=== PATIENT | female | born 1965 | race Caucasian/White ===

== ENCOUNTER 2019-12-29 18:53 | Inpatient (IN) | payer OTHER, SELFPAY ==
[2019-12-29 18:54] VITALS: PULSE 80; RESP 17; TEMP 36.3; O2SAT 100; BMI 33.9
--- NOTE | 2019-12-29 19:14 | EKG12_ITS ---
Test Reason : CHEST PAIN Blood Pressure : / mmHG Vent. Rate : 079 BPM Atrial Rate : 079 BPM P-R Int : 170 ms QRS Dur : 100 ms QT Int : 396 ms P-R-T Axes : 050 009 014 degrees QTc Int : 454 ms Normal sinus rhythm Normal ECG No previous ECGs available Confirmed by MASOUD MOTLEY, ANA ([id number]), editor farm journal JULIÁN THOMAS ([id number]) on 01/03/2020 8:57:55 A M Referred By: ILEANA Confirmed By:MAIKOL MEREDITH MD
--- NOTE | 2019-12-29 19:14 | CT_ITS ---
STUDY: CT ABDOMEN AND PELVIS WITH CONTRAST REASON FOR EXAM: Female, 54 years old. EPIGASTRIC PAIN WITH N/V TODAY RADIATION DOSAGE (If Supplied By Facility): CTDIvol = ( 15.37 ) mGy, DLP = ( 1075.85 ) mGycm TECHNIQUE: Transaxial images were obtained from the dome of the diaphragm to the symphysis pubis without oral contrast. IV 100mL Isovue-370 was administered. Sagittal and coronal images were reconstructed. Individualized dose optimization techniques were used for this CT. COMPARISON: None. FINDINGS: The visualized lung bases are unremarkable. The visualized portions of the heart are within normal limits. Normal liver. Normal gallbladder and extrahepatic biliary system. Normal spleen. Normal pancreas. Normal bilateral adrenal glands. Normal right kidney. Normal left kidney. Normal visualized stomach. There is distention of mid small bowel loops with regions of wall thickening and mesenteric edema. There are enlarged mesenteric lymph nodes measuring up to 1.8 cm. There is diverticulosis of the colon. The appendix is visualized and appears normal. Normal abdominal aorta. Normal inferior vena cava. Normal retroperitoneum. Normal urinary bladder. Normal visualized uterus. There is mild free fluid in the pelvis. Normal abdominal wall. Normal osseous structures. CT/Abdomen/Pelvis W IV Cont ONLY IMPRESSION: Partial small bowel obstruction with wall thickening suggesting inflammatory or infectious enteritis Mild free fluid. Electronically Signed: Roe Nowak MD at 20:20 EDT , Service support ,
[2019-12-29] MEDS: 0.9% Normal Saline 1,000 ML 1000 ML IV (19:27)
[2019-12-29] MEDS: Ondansetron 4 MG/2 ML Vial IV (19:27)
[2019-12-29] MEDS: Morphine 4 MG/ML Syringe IV (19:27)
[2019-12-29 19:31] LABS: Absolute Lymphocyte Count 2.23 X10^3/uL (0.83-4.51); Absolute Neutrophil Count 5.9 X10^3/uL (2.0-7.7); Basophil# 0.03 X10^3/uL; Basophil% 0.3 % (0-1); Eosinophil# 0.04 X10^3/uL; Eosinophils% 0.5 % (0-5); Hematocrit 45.5 % (37-47); Hemoglobin 15.5 g/dL (12.0-15.0); Lymphocyte # 2.23 X10^3/ul (4.0); Lymphocyte % 25.5 % (19-41); Mean Corp Hgb Conc 34.1 g/dL (32-36); Mean Corpuscular Hgb 29.5 pg (27.0-32.0); Mean Corpuscular Volume 86.5 fL (81-99); Mean Platelet Vol. 9.6 fl (6.2-12.0); Monocyte# 0.49 X10^3/uL; Monocyte% 5.6 % (0-10); NRBC Flagged by Analyzer 0 % (0-5); Neutrophil # 5.92 X10^3/uL (2.7-7.7); Neutrophil % 67.9 % (47-70); Platelet Count 285 K/mm3 (150-450); RBC Distribution Width CV 12.2 % (11.6-14.6); RBC Distribution Width SD 38.2 fl (35.1-43.9); Red Blood Count 5.26 M/mm3 (4.2-5.4); White Blood Count 8.7 K/mm3 (4.4-11.0)
[2019-12-29 19:45] LABS: Mucous, Urine 0 SEEN /hpf (<or=2+); Red Blood Cells-Urine 0 SEEN /hpf (0-5); White Blood Cells 0 SEEN /hpf (0-5)
[2019-12-29 19:46] LABS: ALB/GLOB Ratio 1.2 RATIO (0.9-2.4); AST(SGOT) 16 U/L (15-37); Alanine Aminotransfer ALT/SGPT 30 U/L (13-56); Albumin, Serum 4.3 g/dL (3.2-5.0); Alkaline Phosphatase 74 U/L (45-117); Anion Gap 7 (5-15); BUN 14 mg/dL (7-18); BUN/Creat Ratio 13.6 RATIO (10-20); Calcium,Total 9.8 mg/dL (8.5-10.1); Chloride 108 mmol/L (98-107); Creatinine, Serum 1.03 mg/dL (0.55-1.02); EST Glomerular Filtration Rate 60 mL/min (>60); Est Glom Filt Rate - Afr Amer 72 mL/min (>60); Estimated Creatinine Clearance 59.81 ml/min; Globulin 3.6 g/dL (2.2-4.2); Glucose 92 mg/dL (74-106); Lipase 62 U/L (73-393); Potassium 3.7 mmol/L (3.5-5.1); Protein, Total 7.9 g/dL (6.4-8.2); Sodium Level 143 mmol/L (136-145)
[2019-12-29 19:59] LABS: Color, Urine Yellow (Yellow); Glucose, Dipstick Normal (Normal); Ketone-Dipstick Negative (Negative); Leukocyte Esterase-Dipstick Negative /ul (Negative); Nitrite-Dipstick Negative (Negative); Occult Blood-Urine Negative /ul (Negative); Protein-Dipstick Negative (Negative); Urine Bilirubin Dipstick Negative (Negative); Urine Clarity Clear (Clear); Urine Urobilinogen Normal (Normal)
[2019-12-29] MEDS: proMETHazine 25 MG/ML Syringe 6.25 MG IV (20:10)
[2019-12-29 20:35] LABS: Bacteria 2+ /hpf (None Seen); Squamous Epithelial Cells - UA 0-5 SEEN /hpf (5-10)
[2019-12-29 21:05] VITALS: BP 191/94; PULSE 82; RESP 17; O2SAT 95
[2019-12-29 21:06] VITALS: BP 191/94; PULSE 82; RESP 17; TEMP 36.6; O2SAT 95
[2019-12-29 21:08] VITALS: PULSE 84; RESP 16
--- NOTE | 2019-12-29 21:13 | ED.DCSUM_ITS ---
History of Present Illness Chief Complaint: Abd Pain Informant: Patient Narrative: 54-year-old female with no significant past medical history presents with concern for nausea, vomiting, abdominal pain. States is been worsening over the past 24 to 48 hours. States it is in her upper epigastrium. 3 episodes of vomiting today. No relieving or worsening factors. History of small bowel obstruction approximately 8 years ago. No history of abdominal surgery. Past Medical History - Allergies and Home Meds Allergies/Adverse Reactions: Allergies No Known Allergies Allergy (Verified 12/29/19 18:54) Past Medical History: None Surgical History: no surgical history Lives: Spouse/ Significant Other Smoking Status: Never smoker Alcohol: None Drugs: None Review of Systems General: Denies: Chills, Fever, Sweats Eyes: Denies: Visual changes - bilaterally, Diplopia ENT: Denies: Rhinorrhea, Sore throat Cardiovascular: Denies: Chest pain, Palpitations Respiratory: Denies: Dyspnea, Cough, Dyspnea on exertion Gastrointestinal: Reports: Abdominal pain, Nausea, Vomiting. Denies: Diarrhea, Melena, Hematochezia Genitourinary: Denies: Dysuria, Hematuria, Frequency Musculoskeletal: Denies: Back pain, Extremity Pain Skin: Denies: Rash, Wounds Neurological: Denies: Headache, Weakness, Numbness Physical Exam Vital Signs/Narrative: Vital Signs Temp Pulse Resp BP Pulse Ox 12/29/19 21:06 98 F 82 17 191/94 H 95 12/29/19 21:05 82 17 191/94 H 95 12/29/19 18:54 97.4 F L 80 17 100 General: Well nourished, Well developed, No Acute Distress Head: Normocephalic, Atraumatic Eyes: Perrl, EOMI ENT: Moist mucous membranes, No rhinorrhea Neck: Supple, Nontender Cardiovascular: Regular rate, Regular rhythm, No murmurs Respiratory: No distress, CTA bilaterally, Chest nontender Abdomen: Soft, Nondistended, Normal bowel sounds, - - Upper epigastric tenderness. No rebound. Back: Nontender, Normal Inspection Extremities: Nontender, No edema Skin: Normal color, No rash Neurological: Alert, Oriented x3, Cranial nerves II-XII grossly intact, Normal Strength, Normal Sensation Psychological: Normal affect, Normal Mood Diagnostic/Tx/Re-eval Clinical Impression(s) from Imaging Studies Abdomen/Pelvis CT 12/29/19 19:14 IMPRESSION: Partial small bowel obstruction with wall thickening suggesting inflammatory or infectious enteritis Mild free fluid. Electronically Signed: Roe Nowak MD at 20:20 EDT , Service support , Laboratory Data 12/29/19 12/29/19 12/29/19 19:05 19:05 19:30 WBC 8.7 RBC 5.26 Hgb 15.5 H Hct 45.5 MCV 86.5 MCH 29.5 MCHC 34.1 RDW Std Deviation 38.2 RDW Coeff of Patric 12.2 Plt Count 285 MPV 9.6 Immature Gran % (Auto) 0.200 Neut % (Auto) 67.9 Lymph % (Auto) 25.5 [place] % (Auto) 5.6 Eos % (Auto) 0.5 Baso % (Auto) 0.3 Absolute Neuts (auto) 5.9 Absolute Lymphs (auto) 2.23 Nucleated RBC % 0 Sodium 143 Potassium 3.7 Chloride 108 H Carbon Dioxide 28.0 Anion Gap 7 BUN 14 Creatinine 1.03 H Estim Creat Clear Calc 59.81 Est GFR (MDRD) Af Amer 72 Est GFR (MDRD) Non-Af 60 BUN/Creatinine Ratio 13.6 Glucose 92 Calcium 9.8 Total Bilirubin 0.70 AST 16 ALT 30 Alkaline Phosphatase 74 Troponin I < 0.015 Total Protein 7.9 Albumin 4.3 Globulin 3.6 Albumin/Globulin Ratio 1.2 Lipase 62 L Urine Color Yellow Urine Clarity Clear Urine pH 7.0 Ur Specific [place] 1.010 Urine Protein Negative Urine Glucose (UA) Normal Urine Ketones Negative Urine Occult Blood Negative Urine Nitrite Negative Urine Bilirubin Negative Urine Urobilinogen Normal Ur Leukocyte Esterase Negative Urine RBC 0 SEEN Urine WBC 0 SEEN Ur Squamous Epith Cells 0-5 SEEN Urine Bacteria 2+ Urine Mucus 0 SEEN - Rhythm Strip Rhythm Strip: Sinus Rhythm Rate: 65 Ectopy: None - EKG Initial EKG Interpretation: Sinus Rhythm - Sinus rhythm at 65 bpm. KS interval of 174 ms. QTC of 451 ms. No evidence of ST elevation or depression at this time. - Medical Decision Making Appears well nontoxic. Slightly distended with abdominal tenderness. CT shows evidence of partial small bowel obstruction. Patient was given morphine, Zofran, fluid bolus. Patient will have nasogastric tube placed. Spoke with hospitalist and patient will be admitted for further treatment evaluation. Patient stable at time of admission. Impression: 1. Nausea and vomiting 2. Small bowel obstruction ED Disposition - Plan for ED Patient: Disposition: [facility]
--- NOTE | 2019-12-29 21:20 | RAD_ITS ---
STUDY: X-RAY - ABDOMEN/PELVIS REASON FOR EXAM: Female, 54 years old. NG PLACEMENT TECHNIQUE: Single AP view of the abdomen / pelvis. COMPARISON: None. FINDINGS: Feeding tube extends to the stomach in the left upper abdomen. Normal visualized lung bases. There is gaseous distention of small bowel loops. There is no demonstrated free abdominal air. The visualized liver, spleen and kidneys are grossly normal in size and morphology. Normal soft tissue structures. Normal visualized osseous structures. RAD/Abdomen Single View (Portable) IMPRESSION: Feeding tube extends to the stomach. Gaseous distention of small bowel loops with enteritis or partial obstruction. Electronically Signed: Roe Nowak MD at 22:20 EDT , Service support ,
[2019-12-29 21:25] VITALS: BP 157/98; PULSE 88; RESP 17; O2SAT 99
[2019-12-29 22:42] VITALS: BP 152/90; PULSE 67; RESP 18; TEMP 36.6; O2SAT 100; BMI 33.6; BMI 33.7
--- NOTE | 2019-12-29 23:11 | PCM.HP.STD ---
Problem List (1) Partial small bowel obstruction Status: Acute History of Present Illness Date of Admission: 12/29/19 Chief Complaint: abdominal pain The patient is a 54 year old F presents with abdominal pain. Began this morning prior that she did have a bowel movement but then started abdominal pain with nausea. Similar to when she had a bowel obstruction about 7 years ago. At that time, patient underwent a work-up including a exploratory laparotomy that showed no evidence of adhesions nor any evidence of malignancy. Patient has been fine since then. So she had a CAT scan that showed a possible bowel obstruction with some possible enteritis. NG tube was placed in the emergency room. [] Past Medical History Medical History: Medical History (Last Updated 12/29/19 @ 23:[address] Abdoul Willard DO) Small bowel obstruction, partial K56.600 Allergies No Known Allergies Allergy (Verified 12/29/19 18:54) Home Medications: Ambulatory Orders Medication Instructions Recorded Norethindrone AC-Eth Estradiol 1 tab PO DAILY 12/29/19 [Norethin-Ee 1.5-0.03 mg(21) Tb] Surgical History: Surgical History (Last Updated 12/29/19 @ 23:[address] Abdoul Willard DO) H/O exploratory laparotomy Z98.210 Lives: Spouse/ Significant Other Smoking Status: Former smoker Tobacco Use: Non-smoker Alcohol: None Drugs: None - *Family History Maternal History Items: - - no colitis Review of Systems Constitutional: Denies: Anorexia, Fever, Night Sweats Eyes: Denies: Blurred vision, Double vision HEENT: Denies: Head Aches, Sinus Congestion, Sinus Drainage Cardiovascular: Denies: Chest Pain, Palpitations Respiratory: Denies: Cough, Shortness of breath at rest, Sputum production Gastrointestinal: Reports: Abdominal Pain, Nausea. Denies: Diarrhea, Vomiting Genitourinary: Denies: Dysuria Musculoskeletal: Denies: Joint Pain, Joint Tenderness Skin: Denies: Rash, Wounds Neurological: Denies: Numbness, Tingling, Focal weakness Hematologic/ Lymphatic: Denies: Easy Bruising, Easy Bleeding, Hx of blood clot Comment: All review of systems were negative except as mentioned above in the history of present illness and the other review of systems. VTE Information - Inpt Only VTE Present on Admission: No VTE Mechan Device Prophylaxis: None VTE Pharm Prophylaxis ordered?: Yes Patient Problems: Active and Suspected Problems (Last Updated 12/29/19 @ 23:[address] Abdoul Willard, DO) Partial small bowel obstruction (Acute) - Physical Exam Vitals/I&O's: Vital Signs Temp Pulse Resp BP Pulse Ox 36.6 C 88 17 157/98 H 99 12/29/19 21:06 12/29/19 21:25 12/29/19 21:25 12/29/19 21:25 12/29/19 21:25 Oxygen Delivery Method Room Air Weight: 94.6 kg Body Mass Index (BMI) 33.6 Intake and Output for Last 24 Hours 12/27/19 12/28/19 12/29/19 23:59 23:59 23:59 Intake Total 999 / 999 Balance 999 / 999 General: Alert, Cooperative, No apparent distress HEENT: Atraumatic, Normocephalic Oral: Moist Mucosa, No Gingival or Mucosal Lesions/ Ulcerations Neck: No Nodes, Thyroid Normal Size and Texture Lungs: Clear to auscultation, Normal air movement, No rhonchi, No wheeze, No rales Cardiovascular: Regular rate, Regular Rhythm, Normal S1, Normal S2, No murmurs Abdomen: Hypoactive Bowel Sounds, Distended, Tender Extremities: No edema, No Calf Tenderness Skin: No rashes, No breakdown Musculoskeletal: No Tenderness to Palpation of Joints or Extremities, No Muscle Wasting Neurological: Deep Tendon Reflexes 2+/4 and Symmetrical, - - no clonus Psych/Mental Status: Normal Affect, Appropriate Laboratory Results 12/29/19 19:05: WBC 8.7, RBC 5.26, Hgb 15.5 H, Hct 45.5, MCV 86.5, MCH 29.5, MCHC 34.1, RDW Std Deviation 38.2, RDW Coeff of Patric 12.2, Plt Count 285, MPV 9.6, Immature Gran % (Auto) 0.200, Neut % (Auto) 67.9, Lymph % (Auto) 25.5, [place] % (Auto) 5.6, Eos % (Auto) 0.5, Baso % (Auto) 0.3, Absolute Neuts (auto) 5.9, Absolute Lymphs (auto) 2.23, Nucleated RBC % 0 12/29/19 19:05: Sodium 143, Potassium 3.7, Chloride 108 H, Carbon Dioxide 28.0, Anion Gap 7, BUN 14, Creatinine 1.03 H, Estim Creat Clear Calc 59.81, Est GFR (MDRD) Af Amer 72, Est GFR (MDRD) Non-Af 60, BUN/Creatinine Ratio 13.6, Glucose 92, Calcium 9.8, Total Bilirubin 0.70, AST 16, ALT 30, Alkaline Phosphatase 74, Troponin I < 0.015, Total Protein 7.9, Albumin 4.3, Globulin 3.6, Albumin/Globulin Ratio 1.2, Lipase 62 L 12/29/19 19:30: Urine Color Yellow, Urine Clarity Clear, Urine pH 7.0, Ur Specific [place] 1.010, Urine Protein Negative, Urine Glucose (UA) Normal, Urine Ketones Negative, Urine Occult Blood Negative, Urine Nitrite Negative, Urine Bilirubin Negative, Urine Urobilinogen Normal, Ur Leukocyte Esterase Negative, Urine RBC 0 SEEN, Urine WBC 0 SEEN, Ur Squamous Epith Cells 0-5 SEEN, Urine Bacteria 2+, Urine Mucus 0 SEEN Clinical Impression(s) from Imaging Studies Abdomen/Pelvis CT 12/29/19 19:14 IMPRESSION: Partial small bowel obstruction with wall thickening suggesting inflammatory or infectious enteritis Mild free fluid. Electronically Signed: oRe Nowak MD at 20:20 EDT , Service support , KUB X-Ray 12/29/19 21:20 IMPRESSION: Feeding tube extends to the stomach. Gaseous distention of small bowel loops with enteritis or partial obstruction. Electronically Signed: Roe Nowak MD at 22:20 EDT , Service support , Assessment/Plan All Active Problems (Last Updated 12/29/19 @ 23:[address] Abdoul Willard, DO) Partial small bowel obstruction (Acute) 1. Small bowel obstruction, partial: Plan right now is conservative management with NG tube and low intermittent suction. Pain control antiemetics. Some questionable enteritis so we will start the patient on empiric antibiotics with ciprofloxacin and metronidazole. Patient had a extensive work-up approximate 7 years ago that did not show any evidence of adhesions and apparently had malignancy work-up that was negative. Possible could be infectious enteritis that may have caused this or the inflammation may be related with the bowel obstruction itself but also cannot rule out inflammatory bowel disease. Nonetheless, conservative management. Consider general surgery consultation if patient gets worse or fails to progress. Essentially when patient symptoms began to improve, plan would be to clamp the NG tube and if tolerates that then to remove the NG tube and advance diet slowly. 2. VTE prophylaxis: Low molecular weight heparin 3. Advanced care planning: Discussed with the patient. Patient wishes to be DNR Comfort Care arrest. Informed patient that she could certainly change her mind at any time as these orders can be changed at any time. Inpatient E&M: 03736 Init Hosp L2
[2019-12-29] MEDS: Morphine 2 MG/ML Syringe IV (23:52)
[2019-12-29] MEDS: 0.9% Normal Saline 1,000 ML 150 ML IV (23:52)
[2019-12-30] MEDS: 0.9% Saline Lock 10 ML Syringe IV ×2 (00:17→14:39)
[2019-12-30 05:13] VITALS: BP 188/109; PULSE 79; RESP 18; TEMP 36.7; O2SAT 97
--- NOTE | 2019-12-30 05:13 | NURSING ---
Per Ben JEREZ, pt is c/o chest pain. CPS called to obtain EKG.
[2019-12-30] MEDS: Morphine 2 MG/ML Syringe IV (05:17)
--- NOTE | 2019-12-30 05:41 | EKG12_ITS ---
Test Reason : ABD PAIN Blood Pressure : / mmHG Vent. Rate : 065 BPM Atrial Rate : 065 BPM P-R Int : 174 ms QRS Dur : 102 ms QT Int : 434 ms P-R-T Axes : 056 010 020 degrees QTc Int : 451 ms Normal sinus rhythm Normal ECG Confirmed by KEY MOTLEY, MONICA ([id number]), television news video editor JULIÁN THOMAS ([id number]) on 01/04/2020 8:13:05 AM Referred By: JILLIAN Confirmed By:MONICA MACKEY MD
[2019-12-30 06:08] LABS: Absolute Lymphocyte Count 1.63 X10^3/uL (0.83-4.51); Absolute Neutrophil Count 4.1 X10^3/uL (2.0-7.7); Basophil# 0.03 X10^3/uL; Basophil% 0.5 % (0-1); Eosinophil# 0.09 X10^3/uL; Eosinophils% 1.4 % (0-5); Hematocrit 41.5 % (37-47); Hemoglobin 13.5 g/dL (12.0-15.0); Lymphocyte # 1.63 X10^3/ul (4.0); Lymphocyte % 25.6 % (19-41); Mean Corp Hgb Conc 32.5 g/dL (32-36); Mean Corpuscular Hgb 29.1 pg (27.0-32.0); Mean Corpuscular Volume 89.4 fL (81-99); Mean Platelet Vol. 9.4 fl (6.2-12.0); Monocyte# 0.48 X10^3/uL; Monocyte% 7.5 % (0-10); NRBC Flagged by Analyzer 0 % (0-5); Neutrophil # 4.12 X10^3/uL (2.7-7.7); Neutrophil % 64.8 % (47-70); Platelet Count 219 K/mm3 (150-450); RBC Distribution Width CV 12.5 % (11.6-14.6); RBC Distribution Width SD 40.6 fl (35.1-43.9); Red Blood Count 4.64 M/mm3 (4.2-5.4); White Blood Count 6.4 K/mm3 (4.4-11.0)
[2019-12-30] MEDS: 0.9% Normal Saline 1,000 ML 150 ML IV (06:18)
[2019-12-30 06:28] VITALS: BP 168/98
[2019-12-30 06:38] LABS: Anion Gap 6 (5-15); BUN 13 mg/dL (7-18); BUN/Creat Ratio 12.3 RATIO (10-20); Calcium,Total 8.3 mg/dL (8.5-10.1); Chloride 111 mmol/L (98-107); Creatinine, Serum 1.06 mg/dL (0.55-1.02); EST Glomerular Filtration Rate 58 mL/min (>60); Est Glom Filt Rate - Afr Amer 70 mL/min (>60); Estimated Creatinine Clearance 58.12 ml/min; Glucose 108 mg/dL (74-106); Potassium 3.7 mmol/L (3.5-5.1); Sodium Level 143 mmol/L (136-145)
[2019-12-30] MEDS: NORETHINDRONE 0.35 MG TABLET PO (08:24)
--- NOTE | 2019-12-30 10:15 | CASEMGMT ---
RN KENYA Face to Face with patient for initial transition planning/care coordination assessment. RN CM introduced self and role at [facility]. Patient lying in bed, alert and oriented. Patient willing to participate in assessment and is able to answer all questions appropriately. Care providers, pharmacy, and demographics verified. Patient wishes to discharge home, denies need for home health at this time. Patient states she has no further needs or concerns at this time. CM to follow for discharge planning needs that may arise. PCP: Patrick Specialists: none [facility]erred [facility]acy: [facility] Insurance: MMO Prescription Benefit: yes Living Will/HPOA: none LNOK: Living Arrangements: Patient lives with in a single story home with 3-4 steps and railing to enter the home. Patietn states she is independent at home. Transportation: self, DME/HHC: Patient denies previous HHC or DME. Disposition Plan: Patient to discharge home with family support and follow-up plans in place. Margy SETH, RN, CM
[2019-12-30 10:33] VITALS: BP 162/97; PULSE 76; RESP 18; TEMP 37.3; O2SAT 96
[2019-12-30] MEDS: Acetaminophen 325 MG Tablet 650 MG PO ×2 (12:11→17:45)
[2019-12-30 12:36] VITALS: BP 156/90; PULSE 67; RESP 16; TEMP 36.4; O2SAT 97
--- NOTE | 2019-12-30 16:13 | PCM.PN.HOSP ---
Patient Problems: Active and Suspected Problems (Last Updated 12/29/19 @ 23:[address] Abdoul Willard, DO) Partial small bowel obstruction (Acute) Subjective: Pt states that she is feeling so much better today. Was able to pass flatus-a lot. No BM yet though. NGT out and tolerated ice chips. No nausea. Pain has resolved. Vitals/I&O's: Vital Signs Temp Pulse Resp BP Pulse Ox 97.5 F L 67 16 156/90 H 97 12/30/19 12:36 12/30/19 12:36 12/30/19 12:36 12/30/19 12:36 12/30/19 12:36 Oxygen Delivery Method Room Air Weight: 94.6 kg Body Mass Index (BMI) 33.6 Intake and Output for Last 24 Hours 12/28/19 12/29/19 12/30/19 23:59 23:59 23:59 Intake Total 1020 / 1020 1820 / 1820 Output Total 1050 / 1050 Balance 1020 / 1020 770 / 770 General: Alert, Oriented x3, Cooperative, No apparent distress, Well developed, Well nourished, - - middle aged WF lying comfortably in bed and so at bedside HEENT: Atraumatic, Normocephalic Oral: Moist Mucosa Neck: Supple, Trachea Midline Lungs: Clear to auscultation, Normal air movement, No rhonchi, No wheeze, No rales Cardiovascular: Regular rate, Regular Rhythm, Normal S1, Normal S2, No murmurs, No Ectopic Activity, No rub noted, No Gallop Abdomen: Bowel Sounds Present, Soft, Non Tender, Non-Distended, Hyperactive Bowel Sounds, Obese, No hernias noted Extremities: No clubbing, No cyanosis, No edema, Capillary Refill Less than 3 Seconds, Peripheral Pulses Normal Skin: No rashes, No breakdown Neurological: Cranial nerves II-XII grossly intact, Neuro grossly intact Psych/Mental Status: Normal Affect, Appropriate Laboratory Results 12/29/19 19:05: WBC 8.7, RBC 5.26, Hgb 15.5 H, Hct 45.5, MCV 86.5, MCH 29.5, MCHC 34.1, RDW Std Deviation 38.2, RDW Coeff of Patric 12.2, Plt Count 285, MPV 9.6, Immature Gran % (Auto) 0.200, Neut % (Auto) 67.9, Lymph % (Auto) 25.5, [place] % (Auto) 5.6, Eos % (Auto) 0.5, Baso % (Auto) 0.3, Absolute Neuts (auto) 5.9, Absolute Lymphs (auto) 2.23, Nucleated RBC % 0 12/29/19 19:05: Sodium 143, Potassium 3.7, Chloride 108 H, Carbon Dioxide 28.0, Anion Gap 7, BUN 14, Creatinine 1.03 H, Estim Creat Clear Calc 59.81, Est GFR (MDRD) Af Amer 72, Est GFR (MDRD) Non-Af 60, BUN/Creatinine Ratio 13.6, Glucose 92, Calcium 9.8, Total Bilirubin 0.70, AST 16, ALT 30, Alkaline Phosphatase 74, Troponin I < 0.015, Total Protein 7.9, Albumin 4.3, Globulin 3.6, Albumin/Globulin Ratio 1.2, Lipase 62 L 12/29/19 19:30: Urine Color Yellow, Urine Clarity Clear, Urine pH 7.0, Ur Specific [place] 1.010, Urine Protein Negative, Urine Glucose (UA) Normal, Urine Ketones Negative, Urine Occult Blood Negative, Urine Nitrite Negative, Urine Bilirubin Negative, Urine Urobilinogen Normal, Ur Leukocyte Esterase Negative, Urine RBC 0 SEEN, Urine WBC 0 SEEN, Ur Squamous Epith Cells 0-5 SEEN, Urine Bacteria 2+, Urine Mucus 0 SEEN 12/30/19 05:55: WBC 6.4, RBC 4.64, Hgb 13.5, Hct 41.5, MCV 89.4, MCH 29.1, MCHC 32.5, RDW Std Deviation 40.6, RDW Coeff of Patric 12.5, Plt Count 219, MPV 9.4, Immature Gran % (Auto) 0.200, Neut % (Auto) 64.8, Lymph % (Auto) 25.6, [place] % (Auto) 7.5, Eos % (Auto) 1.4, Baso % (Auto) 0.5, Absolute Neuts (auto) 4.1, Absolute Lymphs (auto) 1.63, Nucleated RBC % 0 12/30/19 05:55: Sodium 143, Potassium 3.7, Chloride 111 H, Carbon Dioxide 26.0, Anion Gap 6, BUN 13, Creatinine 1.06 H, Estim Creat Clear Calc 58.12, Est GFR (MDRD) Af Amer 70, Est GFR (MDRD) Non-Af 58 L, BUN/Creatinine Ratio 12.3, Glucose 108 H, Calcium 8.3 L Current Medications Acetaminophen (Acetaminophen 325 Mg Tablet) 650 mg PO Q4H PRN PRN PRN Reason: Pain Score 1-10 Last Admin: 12/30/19 12:11 Dose: 650 mg Documented by: Enoxaparin Sodium (Enoxaparin 40 Mg/0.4 Ml Syringe) 40 mg SC DAILY [facility] Last Admin: 12/30/19 09:20 Dose: Not Given Documented by: Piperacillin Sod/Tazobactam (Sod 3.375 gm/ Sodium Chloride) 50 mls @ 12.5 mls/hr IV Q8 [facility] Last Admin: 12/30/19 14:37 Dose: 12.5 mls/hr Documented by: Morphine Sulfate (Morphine 2 Mg/Ml Syringe) 2 mg IV Q3H PRN PRN PRN Reason: Pain Score 6-10 Last Admin: 12/30/19 05:17 Dose: 2 mg Documented by: Norethindrone (Norethindrone 0.35 Mg Tablet) 0.35 mg PO DAILY [facility] Last Admin: 12/30/19 08:24 Dose: 0.35 mg Documented by: Ondansetron HCl (Ondansetron 4 Mg/2 Ml Vial) 4 mg IV Q8H PRN PRN PRN Reason: NAUSEA/VOMITING Sodium Chloride (0.9% Saline Lock 10 Ml Syringe) 10 - 40 ml IV UD PRN PRN Reason: SALINE FLUSH Last Admin: 12/30/19 14:39 Dose: 10 ml Documented by: STROKE Vital Signs/Narrative: Vital Signs Temp Pulse Resp BP Pulse Ox 12/30/19 12:36 97.5 F L 67 16 156/90 H 97 Medical Necessity - Tobacco Use Smoking Status: Former smoker Tobacco Use: Non-smoker Assessment/Plan All Active Problems (Last Updated 12/29/19 @ 23:[address] Abdoul Willard, DO) Partial small bowel obstruction (Acute) PSBO -d/c NGT -trial of CLD now and if tolerates will advance -prn pain meds but need has ceased at this time -OOB and walking around -? enteritis on CT but now white count and resolved pain -trial off ABX and monitor -possible D/C tomorrow if tolerating PO without issues Elevated BP -has remained elevatated even with resolved pain -start norvasc 10 mg tonight and trend ?CKD stage 2 -UA unremarkable but sCr elevated with GFR of 58 -would recommend further w/o as outpt with possible nephro consult DVT prophylaxis -Lovenox Dispo -likely D/C in am Inpatient E&M: 51624 Subs Hosp L2
[2019-12-30 17:49] VITALS: BP 177/98; PULSE 77; RESP 16; TEMP 36.4; O2SAT 99
[2019-12-30] MEDS: amLODIPine 10 MG Tablet PO (20:00)
[2019-12-30 22:00] VITALS: BP 152/88; PULSE 75; RESP 16; TEMP 37.1; O2SAT 98
[2019-12-31 04:00] VITALS: BP 156/104; PULSE 70; RESP 16; TEMP 36.6; O2SAT 98
[2019-12-31 05:45] LABS: Absolute Lymphocyte Count 1.85 X10^3/uL (0.83-4.51); Absolute Neutrophil Count 3.3 X10^3/uL (2.0-7.7); Basophil# 0.03 X10^3/uL; Basophil% 0.5 % (0-1); Eosinophil# 0.15 X10^3/uL; Eosinophils% 2.6 % (0-5); Hematocrit 42.5 % (37-47); Hemoglobin 14.1 g/dL (12.0-15.0); Lymphocyte # 1.85 X10^3/ul (4.0); Lymphocyte % 32.3 % (19-41); Mean Corp Hgb Conc 33.2 g/dL (32-36); Mean Corpuscular Hgb 29.4 pg (27.0-32.0); Mean Corpuscular Volume 88.7 fL (81-99); Mean Platelet Vol. 9.3 fl (6.2-12.0); Monocyte# 0.37 X10^3/uL; Monocyte% 6.5 % (0-10); NRBC Flagged by Analyzer 0 % (0-5); Neutrophil % 57.8 % (47-70); Platelet Count 225 K/mm3 (150-450); RBC Distribution Width CV 12.1 % (11.6-14.6); RBC Distribution Width SD 39.6 fl (35.1-43.9); Red Blood Count 4.79 M/mm3 (4.2-5.4); White Blood Count 5.7 K/mm3 (4.4-11.0)
[2019-12-31 05:59] LABS: BUN 10 mg/dL (7-18); BUN/Creat Ratio 11.1 RATIO (10-20); Calcium,Total 8.8 mg/dL (8.5-10.1); Chloride 108 mmol/L (98-107); EST Glomerular Filtration Rate 69 mL/min (>60); Est Glom Filt Rate - Afr Amer 84 mL/min (>60); Estimated Creatinine Clearance 68.45 ml/min; Glucose 101 mg/dL (74-106); Potassium 3.6 mmol/L (3.5-5.1); Sodium Level 141 mmol/L (136-145)
[2019-12-31 06:00] LABS: Anion Gap 3 (5-15)
--- NOTE | 2019-12-31 08:10 | PCM.DC ---
- Discharge Diagnoses Current Active Problems: Current Active and Chronic Problems (Last Updated 12/29/19 @ 23:[address] Abdoul Willard, DO) Partial small bowel obstruction (Acute) You will use the following diet at home:: No restrictions, Regular Your food should be the consistency of: Regular Your liquids should be the consistency of: Regular/Thin Discharge Activity: Return to Normal Activity, No Restrictions, May Drive Return to work on:: 01/03/20 May resume sexual activity in: No Restrictions Allergies/Adverse Reactions: Allergies No Known Allergies Allergy (Verified 12/29/19 18:54) Medications to take at Discharge Norethindrone AC-Eth Estradiol [Norethin-Ee 1.5-0.03 mg(21) Tb] 1 tab PO DAILY 12/29/19 Amlodipine [Norvasc] 10 mg PO DAILY #30 tab 12/31/19 Polyethylene Glycol 3350 [Miralax] 17 gm PO DAILY #1 packet 12/31/19 The following prescriptions were given: Polyethylene Glycol 3350 [Miralax] 17 gm PO DAILY #1 packet Amlodipine [Norvasc] 10 mg PO DAILY #30 tab Transmission Status: Pending to [address] Primary Care Physician: Jaqui Nguyen MD [Primary Care Provider] - Please follow up with your Primary Care Physician in: 1 week for BP check Test Results: Test results from this visit will be discussed in further detail at your follow-up appointment, if applicable.
--- NOTE | 2019-12-31 08:11 | PCM.DC.SUM ---
Discharge Date and Diagnosis - Problem List Patient Problems: Active and Suspected Problems (Last Updated 12/29/19 @ 23:[address] Abdoul Willard DO) Partial small bowel obstruction (Acute) Date of Admission: 12/29/19 Date of Discharge: 12/31/19 - Primary Discharge Diagnosis Acute Problems: Active Problems (Last Updated 12/29/19 @ 23:[address] Abdoul Willard DO) Partial small bowel obstruction (Acute) Hospital Course and Treatment Imaging Results: STUDY: CT ABDOMEN AND PELVIS WITH CONTRAST REASON FOR EXAM: Female, 54 years old. EPIGASTRIC PAIN WITH N/V TODAY RADIATION DOSAGE (If Supplied By Facility): CTDIvol = ( 15.37 ) mGy, DLP = ( 1075.85 ) mGycm TECHNIQUE: Transaxial images were obtained from the dome of the diaphragm to the symphysis pubis without oral contrast. IV 100mL Isovue-370 was administered. Sagittal and coronal images were reconstructed. Individualized dose optimization techniques were used for this CT. COMPARISON: None. FINDINGS: The visualized lung bases are unremarkable. The visualized portions of the heart are within normal limits. Normal liver. Normal gallbladder and extrahepatic biliary system. Normal spleen. Normal pancreas. Normal bilateral adrenal glands. Normal right kidney. Normal left kidney. Normal visualized stomach. There is distention of mid small bowel loops with regions of wall thickening and mesenteric edema. There are enlarged mesenteric lymph nodes measuring up to 1.8 cm. There is diverticulosis of the colon. The appendix is visualized and appears normal. Normal abdominal aorta. Normal inferior vena cava. Normal retroperitoneum. Normal urinary bladder. Normal visualized uterus. There is mild free fluid in the pelvis. Normal abdominal wall. Normal osseous structures. CT/Abdomen/Pelvis W IV Cont ONLY IMPRESSION: Partial small bowel obstruction with wall thickening suggesting inflammatory or infectious enteritis Mild free fluid. Electronically Signed: Roe Nowak MD at 20:20 EDT , Service support , Operations: None Procedures: None Summary of Care Provided: Ms Keen is a 54 year old F who presented to the ED at [facility] on 12/29/2019 with abdominal pain. It began the morning of admissin and prior to that she did have a bowel movement but then started abdominal pain with nausea. She stated that it was similar to when she had a bowel obstruction about 7 years ago. At that time, she underwent a work-up including a exploratory laparotomy that showed no evidence of adhesions nor any evidence of malignancy. She had been fine since then. CT of Abd/Pelvis done in the ED showed a possible bowel obstruction with some possible enteritis. NG tube was placed in the emergency room and she was admitted to the medical floor. He labs were overall unimpressive other than some MARIEL which resolved with hydration. She was treated with IVF and pain medication and by the next am was passing flatus and the NGT had very little output and therefore was removed. She trialed ice chips, which went well and then progressed to CLD then regular food which she tolerated without issues. She continued to feel well and had no pain although she has not yet had a BM she continues to pass a lot of flatus. Her BP was consistently elevated even when her pain resolved and she was therefore started on Norvasc 10 mg daily and was given a script for this as well. She is t f/u with her PCP in 1 week for a BP check. She will take Miralax daily until she has BM. She was discharged in stable condition. Patient Problems: Active and Suspected Problems (Last Updated 12/29/19 @ 23:[address] Abdoul Willard, DO) Partial small bowel obstruction (Acute) Subjective: Pt states that she is feeling well today. Tolerated diet without any issues. Lots of flatus but no BM yet. - Physical Exam Vitals/I&O's: Vital Signs Temp Pulse Resp BP Pulse Ox 97.9 F 70 16 156/104 H 98 12/31/19 04:00 12/31/19 04:00 12/31/19 04:00 12/31/19 04:00 12/31/19 04:00 Oxygen Delivery Method Room Air Weight: 94.6 kg Body Mass Index (BMI) 33.6 Intake and Output for Last 24 Hours 12/29/19 12/30/1920 23:59 23:59 23:59 Intake Total 1020 / 1020 2670 / 3270 1400 / 1400 Output Total 1650 / 1650 Balance 1020 / 1020 1020 / 1620 1400 / 1400 General: Alert, Oriented x3, Cooperative, No apparent distress, Well developed, Well nourished, - - Pleasant middle aged WF sitting up in bed, appears comfortable Oral: Moist Mucosa Neck: Supple, Trachea Midline Lungs: Clear to auscultation, Normal air movement, No rhonchi, No wheeze, No rales Cardiovascular: Regular rate, Regular Rhythm, Normal S1, Normal S2, No murmurs, No Ectopic Activity, No rub noted, No Gallop Abdomen: Bowel Sounds Present, Soft, Non Tender, Non-Distended, No Hepato-splenomegaly, Obese, No hernias noted Extremities: No clubbing, No cyanosis, No edema, Capillary Refill Less than 3 Seconds, Peripheral Pulses Normal Skin: No rashes, No breakdown Musculoskeletal: No Tenderness to Palpation of Joints or Extremities Neurological: Cranial nerves II-XII grossly intact, Neuro grossly intact Psych/Mental Status: Normal Affect, Appropriate, Alert and oriented to time, place, person, mood and affect Laboratory Results 12/31/19 05:10: WBC 5.7, RBC 4.79, Hgb 14.1, Hct 42.5, MCV 88.7, MCH 29.4, MCHC 33.2, RDW Std Deviation 39.6, RDW Coeff of Patric 12.1, Plt Count 225, MPV 9.3, Immature Gran % (Auto) 0.300, Neut % (Auto) 57.8, Lymph % (Auto) 32.3, [place] % (Auto) 6.5, Eos % (Auto) 2.6, Baso % (Auto) 0.5, Absolute Neuts (auto) 3.3, Absolute Lymphs (auto) 1.85, Nucleated RBC % 0 12/31/19 05:10: Sodium 141, Potassium 3.6, Chloride 108 H, Carbon Dioxide 30.0, Anion Gap 3 L, BUN 10, Creatinine 0.90, Estim Creat Clear Calc 68.45, Est GFR (MDRD) Af Amer 84, Est GFR (MDRD) Non-Af 69, BUN/Creatinine Ratio 11.1, Glucose 101, Calcium 8.8 Current Medications Acetaminophen (Acetaminophen 325 Mg Tablet) 650 mg PO Q4H PRN PRN PRN Reason: Pain Score 1-10 Last Admin: 12/30/19 17:45 Dose: 650 mg Documented by: Amlodipine Besylate (Amlodipine 10 Mg Tablet) 10 mg PO DAILY [facility] Last Admin: 12/30/19 20:00 Dose: 10 mg Documented by: Enoxaparin Sodium (Enoxaparin 40 Mg/0.4 Ml Syringe) 40 mg SC DAILY [facility] Last Admin: 12/30/19 09:20 Dose: Not Given Documented by: Morphine Sulfate (Morphine 2 Mg/Ml Syringe) 2 mg IV Q3H PRN PRN PRN Reason: Pain Score 6-10 Last Admin: 12/30/19 05:17 Dose: 2 mg Documented by: Norethindrone (Norethindrone 0.35 Mg Tablet) 0.35 mg PO DAILY [facility] Last Admin: 12/30/19 08:24 Dose: 0.35 mg Documented by: Ondansetron HCl (Ondansetron 4 Mg/2 Ml Vial) 4 mg IV Q8H PRN PRN PRN Reason: NAUSEA/VOMITING Sodium Chloride (0.9% Saline Lock 10 Ml Syringe) 10 - 40 ml IV UD PRN PRN Reason: SALINE FLUSH Last Admin: 12/30/19 14:39 Dose: 10 ml Documented by: Discharge Activity: Return to Normal Activity, No Restrictions, May Drive Return to work on:: 01/03/20 May resume sexual activity in: No Restrictions Home Medications: Medications to take at Discharge Norethindrone AC-Eth Estradiol [Norethin-Ee 1.5-0.03 mg(21) Tb] 1 tab PO DAILY 12/29/19 Amlodipine [Norvasc] 10 mg PO DAILY #30 tab 12/31/19 Polyethylene Glycol 3350 [Miralax] 17 gm PO DAILY #1 packet 12/31/19 Following Prescriptions Were Given to Patient: Polyethylene Glycol 3350 [Miralax] 17 gm PO DAILY #1 packet Amlodipine [Norvasc] 10 mg PO DAILY #30 tab Transmission Status: Received by [facility] [address] Primary Care Physician: Jaqui Nguyen MD [Primary Care Provider] - Please follow up with your Primary Care Physician in: 1 week for BP check Medical Necessity - Tobacco Use Smoking Status: Former smoker Tobacco Use: Non-smoker Meaningful Use Info Meaningful Use Diagnoses (Choose all that apply): None applicable Inpatient E&M: 94143 Disch Hosp
[2019-12-31] MEDS: amLODIPine 10 MG Tablet PO (08:15)
[2019-12-31] MEDS: NORETHINDRONE 0.35 MG TABLET PO (08:15)
[2019-12-31 08:19] VITALS: BP 158/102; PULSE 81; RESP 18; TEMP 36.6; O2SAT 99
== END 2019-12-31 09:21 | disposition home or self-care (01) | DRG 390 ==
LOC: ED 19:26 → MS3 21:20
PROVIDERS: Emergency Provider Emergency Medicine; PCP Family Medicine; Visit Provider Internal Medicine
DX: K56.600 Partial intestinal obstruction, unspecified as to cause (principal); K52.9 Noninfective gastroenteritis and colitis, unspecified; R03.0 Elevated blood-pressure reading, without diagnosis of hypertension; Z87.19 Personal history of other diseases of the digestive system; Z87.891 Personal history of nicotine dependence
CPT/HCPCS: 36415; 74018; 74177; 80048; 80053; 81001; 83690; 84484; 85025; 93005; 94640; 99281; 99282; 99285; J7030; J7040; Q9967; A4216; J2405

== ENCOUNTER 2020-05-14 21:27 | Emergency (ER) | payer OTHER, SELFPAY ==
[2019-12-29 22:42] VITALS: BMI 33.6
[2020-05-14 21:28] VITALS: BP 138/96; PULSE 78; RESP 18; TEMP 36.6; O2SAT 98; BMI 32.8
--- NOTE | 2020-05-14 22:10 | CT_ITS ---
STUDY: CT BRAIN WITHOUT CONTRAST REASON FOR EXAM: Female, 55 years old. Injury/Pain RADIATION DOSAGE (If Supplied By Facility): CTDIvol = ( 44.99 ) mGy, DLP = ( 812.98 ) mGycm TECHNIQUE: Transaxial CT imaging of the brain was performed without administration of intravenous contrast material. Individualized dose optimization techniques were used for this CT. COMPARISON: No relevant priors. FINDINGS: Normal soft tissue structures. Normal calvarium. Normal size ventricles and extra-axial spaces for the patient''s age. Normal white matter tracts of the cerebral hemispheres. Normal basal ganglia and thalami. Normal brainstem. Normal cerebellum. There is no intracranial hemorrhage. There are no findings of an acute ischemic infarction. Moderate mucosal thickening at the base of the right maxillary sinus. CT/Brain/Head without Contrast IMPRESSION: Normal unenhanced CT scan of the brain. Negative for hemorrhage, hematoma or extra-axial fluid collection. Electronically Signed: Natasha King MD at 22:40 EST , Service support ,
--- NOTE | 2020-05-14 22:10 | CT_ITS ---
STUDY: CT CERVICAL SPINE WITHOUT CONTRAST REASON FOR EXAM: Female, 55 years old. Injury/Pain/acute traumatic injury of the cervical spine. RADIATION DOSAGE (If Supplied By Facility): CTDIvol = ( 27.49 ) mGy, DLP = ( 502.85 ) mGycm TECHNIQUE: High resolution transaxial imaging was performed without contrast material. Sagittal and coronal images were reconstructed. Individualized dose optimization techniques were used for this CT. COMPARISON: None FINDINGS: Normal craniovertebral junction. Normal anterior atlantoaxial articulation. Normal odontoid process. There is straightening of the normal cervical lordosis. Normal vertebral bodies and posterior osseous elements. Minor degenerative disc and joint changes with no central stenosis or foraminal narrowing at cervical levels. Normal visualized soft tissue structures. CT/Spine Cervical without Contras IMPRESSION: Straightening of the cervical spine with otherwise normal alignment. Negative for acute fracture of the cervical spine. Minimal degenerative disc and joint changes. Electronically Signed: Natasha King MD at 22:41 EST , Service support ,
--- NOTE | 2020-05-14 22:25 | RAD_ITS ---
STUDY: X-RAY - LEFT KNEE REASON FOR EXAM: Female, 55 years old. Injury/Pain TECHNIQUE: 4 view(s) of the knee. COMPARISON: None. FINDINGS: Normal visualized distal femur. Normal visualized proximal tibia and fibula. Normal proximal tibiofibular articulation. There is no demonstrated fracture. Normal medial femorotibial compartment. Normal lateral femorotibial compartment. Normal patellofemoral articulation. Minimal anterior patella enthesophyte. The soft tissue structures are unremarkable. RAD/Knee 4 or More Views IMPRESSION: Negative for fracture or dislocation. Negative for substantial joint effusion or arthritic/degenerative changes. Electronically Signed: Natasha King MD at 22:43 EST , Service support ,
[2020-05-14] MEDS: Ondansetron ODT 4 MG Tablet PO (22:40)
--- NOTE | 2020-05-14 22:58 | ED.VISSUMM ---
- ER Visit Summary Date of Service: 05/14/20 Chief Complaint: Head injury History of Present Illness: The patient is a [address] Feliz. Reports that she went skiing for the first time yesterday. States that she fell twice in the back of her head. Did not have a loss of consciousness. She not on anticoagulants. However she has a headache is 2-10 severity. Reports that she has blurred vision that comes and goes. She complains of neck pain is 2 of 10 severity. She complains of left knee pain is 6 out of 10 with walking. Patient denies any other injuries or complaints. Physical Examination: Vitals: Stable. Afebrile. Neck: Mild diffuse tenderness palpation over the cervical spine diffusely and the paraspinous musculature. There is no point tenderness. Full range of motion without difficulty. Back: No vertebral tenderness. General: A&O x 3. NAD. Cardiovascular exam: Regular rate and rhythm, no murmur, rub or gallop. Respiratory exam: Chest nontender. No crepitus. Clear to auscultation bilaterally. No wheezes or stridor. Abdominal exam: Soft, nontender, nondistended, normal bowel sounds. No pain in RUQ or LUQ specifically. No peritoneal signs. Extremity: Mild tenderness palpation over the medial side of her left knee. There is no appreciable joint effusion. There is no erythema or warmth to suggest a septic joint. She has no pain with short arc movements. She has pain, but no ligamentous instability with lateral stress. There is no pain or ligamentous instability with medial stress or anterior/posterior drawer. She is neurovascular intact distal to this Test Results: Clinical Impression(s) from Imaging Studies Brain CT 05/14/20 22:10 IMPRESSION: Normal unenhanced CT scan of the brain. Negative for hemorrhage, hematoma or extra-axial fluid collection. Electronically Signed: Natasha King MD at 22:40 EST , Service support , Cervical Spine CT 05/14/20 22:10 IMPRESSION: Straightening of the cervical spine with otherwise normal alignment. Negative for acute fracture of the cervical spine. Minimal degenerative disc and joint changes. Electronically Signed: Natasha King MD at 22:41 EST , Service support , Knee X-Ray 05/14/20 22:25 IMPRESSION: Negative for fracture or dislocation. Negative for substantial joint effusion or arthritic/degenerative changes. Electronically Signed: Natasha King MD at 22:43 EST , Service support , Emergency Department Course and Treatment: Patient refused pain medications. She was given Zofran and is resting comfortably. Treatment Plan: At following session with the patient that she does have a concussion and was given restrictions for this. She will be discharged with instructions to follow-up with her primary care physician in 1 week for reevaluation of this. She given a prescription of Zofran. We also discussed possibility of damage to the ligaments or cartilage in her left knee. She is instructed to ice it and follow-up with Dr. Memo Santos in 1 week if this is not improving. She refused pain medications for home. Return to the emergency department for any worsening symptoms. Disposition: To home in improved and stable condition. Impression: 1. Concussion. 2. Left knee pain, acute. This note was generated with [employer] dictation software. It may contain incorrect words, spelling, and punctuation that were not noted in review of the chart prior to signing ED Disposition - Plan for ED Patient: Disposition: Home or Assisted Living Instructions: ED Concussion, ED Knee Pain of Uncertain Cause Prescriptions: Ondansetron [Zofran Odt] 4 mg PO Q8H PRN PRN #10 tab PRN Reason: Nausea Prescription Printed Referrals: Jaqui Nguyen MD [Primary Care Provider] - 1 Week Memo Santos MD [STAFF PHYSICIAN] - 1 Week if not improving
[2020-05-14 23:03] VITALS: BP 130/81; PULSE 65; RESP 16; O2SAT 100
== END 2020-05-14 23:12 | disposition home or self-care (01) ==
LOC: ED 23:11
PROVIDERS: Emergency Provider Emergency Medicine; PCP Family Medicine
DX: S06.0X0A Concussion without loss of consciousness, initial encounter (principal); M25.562 Pain in left knee; W19.XXXA Unspecified fall, initial encounter; Y93.9 Activity, unspecified; Y92.9 Unspecified place or not applicable; I10 Essential (primary) hypertension; Z79.899 Other long term (current) drug therapy
CPT/HCPCS: 70450; 72125; 73564; 99283

== ENCOUNTER 2021-10-23 02:56 | Emergency (ER) | payer OTHER, SELFPAY ==
[2021-10-23 02:57] VITALS: BP 161/102; PULSE 92; RESP 17; TEMP 37.8; O2SAT 96; BMI 36.6
--- NOTE | 2021-10-23 02:58 | RAD_ITS ---
STUDY: X-RAY CHEST REASON FOR EXAM: Female, 56 years old. Fever, productive cough TECHNIQUE: AP portable. 3:07 AM. COMPARISON: None. FINDINGS: LUNGS: Minimal opacity in the right lung base medially. This may be prominent vascular structures exaggerated by degree of rotation. No pneumothorax. MEDIASTINUM: Unremarkable. CARDIAC SILHOUETTE: Not enlarged. BONES AND SOFT TISSUES: No acute abnormalities. RAD/Chest 1 View (Portable) IMPRESSION: Questionable right basilar atelectasis or infiltrate. Follow-up PA and lateral chest x-ray may be helpful. Electronically Signed: La Nena Boone MD at 3:28 EDT ,
--- NOTE | 2021-10-23 03:00 | EDS_ITS ---
HPI History of Present Illness Chief Complaint: General Illness Detail of Chief Complaint: Systemic viral symptoms with fever Informant: patient Onset/Context/Timing Onset: Yesterday (Onset at 1700) Context: Sudden Onset Timing: Continuous Quality: Achy pain Location: Head, extremities, back and read HPI narrative Current Severity: Mild Maximum Severity: Moderate Worsened by: Nothing Relieved by: Nothing Associated Symptoms Associated Symptoms: Vomiting x3, diarrhea for 1 week, lightheadedness and chest discomfort per Narrative Narrative: Patient is a 56-year-old woman with history of hypertension on control pills who presents because she aches all over. She endorses headache. Denies photophobia. She has mild congestion. She does have a cough productive of green-colored sputum. She does not smoke. She has had no ill contacts. She does report nausea with emesis x3 since 9 PM yesterday. She has had diarrhea for several days. She has no known ill contacts. She does endorse myalgias and arthralgias. When patient was asked to sit up she complained of lightheadedness and was very wobbly. She also became diaphoretic. Patient had a single episode. She was not bradycardic to suggest vasovagal syncope. She is quite tachycardic. Suspect this represents orthostatic hypotension. There was no incontinence. There was no seizure-like activity. Prior similar symptoms: No Recent Illness/Hospitalization: No PFSH PFSH Medical History (Updated 10/23/21 @ 04:[address] Nasir Kelsey MD) Small bowel obstruction, partial Medical History no medical history no medical history (History of hypertension) Home Medications norethindrone acetate 1.5 mg-ethinyl estradiol 30 mcg tablet 1 tab PO DAILY control menstrual period 12/29/19 [History Last Taken 12/29/19 08:30] amlodipine 10 mg tablet 10 mg PO DAILY #30 tabs 12/31/19 [Rx Last Taken Unknown] Allergy/AdvReac Type Severity Reaction Status Date / Time No Known Allergies Allergy Verified 10/23/21 02:59 Surgical History H/O exploratory laparotomy Social History (Updated 10/23/21 @ 03:[address] Nasir Kelsey MD) household members: spouse and children Smoking Status: Former smoker alcohol intake: current substance use type: does not use ROS ROS ED Constitutional Constitutional ED: Reports sweats; Denies chills, fever(s) or weight loss Eyes Eyes: Denies blurry vision, change in vision or diplopia ENT ENT ED: Reports rhinorrhea; Denies ear pain or sore throat Cardiovascular Cardiovascular: Reports chest pain and other Details: Patient states she complained of chest pain while lying in bed. This started last evening. ; Denies orthopnea, palpitations, paroxysmal nocturnal dyspnea or racing heartbeat Respiratory/Chest Respiratory/Chest: Reports cough, dyspnea and dyspnea on exertion; Denies orthopnea or paroxysmal nocturnal dyspnea Gastrointestinal Gastrointestinal: Reports diarrhea, nausea and vomiting; Denies abdominal pain, constipation or melena Genitourinary Genitourinary ED: Denies dysuria or hematuria Musculoskeletal Musculoskeletal: Reports arthralgias, myalgias and neck pain Integumentary Denies Abrasions or rash Neurologic Neurologic: Reports headache(s); Denies paresthesias or weakness Endocrine Endocrinology: Denies cold intolerance or heat intolerance Hematologic/Lymphatic Hematologic/Lymphatic: Denies anemia, easy bleeding or easy bruising EXAM Physical Exam Const Vital Signs: 10/23/21 02:57 10/23/21 03:21 10/23/21 04:31 Temperature 100.1 F H Temperature Source Oral Pulse Rate 92 79 Respiratory Rate 17 17 Respiratory Effort Normal Respiratory Pattern Normal Blood Pressure 161/102 H 140/83 H Blood Pressure Mean 121 102 Pulse Ox 96 96 Oxygen Delivery Method Room Air Room Air Positive well nourished, well developed and cachectic Constitutional Narrative: Patient appears ill. She is diaphoretic. As previously documented she became lightheaded rising from a supine position to upright position allowing me to auscultate her lungs. Shortly afterwards she passed out. She became more tachycardic. Suspect this is due to orthostatic hypotension from dehydration/poor p.o. intake. General Appearance ED: well developed, cachectic and diaphoretic; Negative for cyanotic, NAD or pallor Nutritional Appearance: cachectic HEENT Reports TM's clear and dry mucous membranes HEENT Narrative: She did endorse dry mouth and thirst. External auditory canal normal. Ears normal. Nares patent with slight drainage. Uvula midline. There is no erythema or exudate. Negative for trauma or tenderness Tympanic Membrane ED: Yes TM's clear Mouth ED: Yes dry mucous membranes Mouth: dry mucous membranes Eyes PERRL and EOMs intact bilaterally General Eye ED: Negative for pale conjunctiva or scleral icterus Neck no lymphadenopathy, supple and no JVD Chest Wall inspection of chest normal and palpation of chest normal Resp normal respiratory effort and clear to auscultation bilaterally Cardio regular rate, regular rhythm, S1 normal heart sound, S2 normal heart sound and no murmurs Palpation: Negative for palpable S3 GI normal to inspection, nondistended, normoactive bowel sounds, non-tender, non- distended and no masses; Negative for hepatosplenomegaly Back/Spine no CVA tenderness Extremity normal to inspection Extremity Narrative: There is no asymmetry, swelling, discoloration, leg vein distention, palpable cords or tenderness along the distribution of the deep venous system. General Extremety ED: Negative for edema or tenderness General Extremity: Negative for edema Neuro oriented x3, CN's II-XII intact bilaterally and no sensory deficits noted Sensorium / Orientation: alert Psych mental status grossly normal Skin no rashes or lesions noted and no wounds General Skin Exam: Negative for jaundice or pallor MDM MDM MDM Narrative Medical decision making narrative: She has a viral infection. This may represent COVID. Because of reported diarrhea with orthostatic symptoms and clinically dehydrated IV fluid was ordered. BMP was ordered to assess for hypokalemia and renal function. CBC to assess for white count as well as H&H. Chest x-ray was obtained to evaluate for pneumonia. Suspect patient sickle cell is due to orthostatic hypotension. However, because stated she complained of shortness of breath and chest discomfort late last evening will obtain troponin and D-dimer. More concern for PE versus cardiac etiology. The CTA was independently reviewed by me at 0358. There is no evidence of infiltrate. There is no evidence of pulmonary embolus. Awaiting formal read by radiologist. The CTA was obtained since her chest x-ray was unremarkable and D- dimer was elevated. CT interpreted by radiologist reveals bronchial wall thickening consistent with bronchitis. This would explain patient's chest pain. We will discontinue the 2-hour troponin. Patient was informed of her results and will be discharged home with appropriate home-going instructions. Her only present complaint is headache. She will receive morphine prior to discharge. Lab Data Attestation: I reviewed the patient's lab results. Lab results narrative: CBC is unremarkable. Thereisaslightincreaseinneutrophil. D-dimer elevated even after correction for age. Renal function normal. Tropon in is normal. COVID test is negative. If radiologist read is consistent with my opinion that there is no acute process we will treat for viral infection. Labs: Laboratory Results - last 24 hr 10/23/21 10/23/21 10/23/21 03:05 03:05 03:05 WBC 5.9 RBC 4.89 Hgb 14.4 Hct 41.5 MCV 84.9 MCH 29.4 MCHC 34.7 RDW Std Deviation 37.2 RDW Coeff of Patric 12.2 Plt Count 191 MPV 9.3 Immature Gran % (Auto) 0.200 Neut % (Auto) 74.9 H Lymph % (Auto) 8.8 L [place] % (Auto) 14.7 H Eos % (Auto) 0.7 Baso % (Auto) 0.7 Absolute Neuts (auto) 4.4 Absolute Lymphs (auto) 0.52 L Nucleated RBC % 0 D-Dimer Quant (PE/DVT) 0.62 H* Sodium 138 Potassium 3.5 Chloride 104 Carbon Dioxide 26.0 Anion Gap 8 BUN 17 Creatinine 1.00 Estim Creat Clear Calc 60.21 Est GFR (MDRD) Af Amer 74 Est GFR (MDRD) Non-Af 61 BUN/Creatinine Ratio 17.1 Glucose 120 H Calcium 9.3 Troponin I High Sens 4 Radiography Chest X-Ray - ED: 1 View and Read by ED Physician (Single view portable chest x- ray interpreted by me at 0319 reveals mild cardiomegaly. The film is supine. Cardiac silhouette is unremarkable. Perihilar regions unremarkable. Lung parenchyma is unremarkable. Osseous structures are unremarkable. There is no acute pathology noted.) Diagnostic Testing: Clinical Impression(s) from Imaging Studies Chest X-Ray 10/23/21 02:58 IMPRESSION: Questionable right basilar atelectasis or infiltrate. Follow-up PA and lateral chest x-ray may be helpful. Electronically Signed: La Nena Boone MD at 3:28 EDT , Chest CTA 10/23/21 03:54 IMPRESSION: No evidence of pulmonary emboli. No consolidation. Mild bronchial wall thickening is nonspecific and may be acute or chronic. Electronically Signed: La Nena Boone MD at 4:27 EDT , Rhythm Strip Rhythm Strip: Sinus Rhythm Rate: 92 (When patient had syncopal sewed with collapse she was tachycardic with a rate of 118 to 122.) Ectopy: None EKG Initial EKG: Attestation: I personally reviewed and interpreted this EKG as follows: Interpretation: Sinus Rhythm (Ventricular rate is 86. EKG is normal. UT interval 168 ms. Cures duration 104 ms. QT duration 388 ms. [place] is normal.) Discharge Plan Triage Chief Complaint: General Illness ED Provider: Nasir Kelsey Dx/Rx/DC Orders Clinical Impression: Systemic viral illness, Fever and chills, Syncope due to orthostatic hypotension, Elevated d-dimer, Chest pain, Acute dehydration Instructions: ED Hypotension, Orthostatic, ED Viral Syndrome (Adult) Prescriptions: No Action norethindrone ac-eth estradiol 1 EACH tablet 1 tab PO DAILY amlodipine 10 MG tablet 10 mg PO DAILY Qty: 30 2RF Stand Alone Forms: ED Work / School Excuse Primary Care Provider: Jaqui Nguyen Referrals: Jaqui Nguyen MD [Primary Care Provider] - 1 Week if not improving Activity Restrictions/Additional Instructions: 1. Drink plenty of fluids. The reason you passed out was due to dehydration 2. Take 4 Advil tablets every 8 hours for the next 3 to 5 days 3. Take 1-2 Tylenol tablets 2 hours prior to your next Advil dose. This will prevent temperature fluctuations. Disposition Disposition: Home, Self Care
--- NOTE | 2021-10-23 03:01 | EKG12_ITS ---
Test Reason : GEN ILL Blood Pressure : / mmHG Vent. Rate : 086 BPM Atrial Rate : 086 BPM P-R Int : 168 ms QRS Dur : 104 ms QT Int : 388 ms P-R-T Axes : 028 005 036 degrees QTc Int : 464 ms Normal sinus rhythm Normal ECG Confirmed by KEY MOTLEY, MONICA ([id number]), television news video editor JULIÁN THOMAS ([id number]) on 10/24/2021 12:49:17 PM Referred By: Confirmed By:MONICA MACKEY MD
[2021-10-23] MEDS: 0.9% Normal Saline 1,000 ML 1000 ML IV (03:03)
[2021-10-23] MEDS: Ketorolac 15 MG/ML Vial IV (03:05)
[2021-10-23 03:16] LABS: Absolute Lymphocyte Count 0.52 X10^3/uL (0.83-4.51); Absolute Neutrophil Count 4.4 X10^3/uL (2.0-7.7); Basophil# 0.04 X10^3/uL; Basophil% 0.7 % (0-1); Eosinophil# 0.04 X10^3/uL; Eosinophils% 0.7 % (0-5); Hematocrit 41.5 % (37-47); Hemoglobin 14.4 g/dL (12.0-15.0); Lymphocyte # 0.52 X10^3/ul (0.83-4.51); Lymphocyte % 8.8 % (19-41); Mean Corp Hgb Conc 34.7 g/dL (32-36); Mean Corpuscular Hgb 29.4 pg (27.0-32.0); Mean Corpuscular Volume 84.9 fL (81-99); Mean Platelet Vol. 9.3 fl (6.2-12.0); Monocyte# 0.87 X10^3/uL; Monocyte% 14.7 % (0-10); NRBC Flagged by Analyzer 0 % (0-5); Neutrophil # 4.42 X10^3/uL (2.7-7.7); Neutrophil % 74.9 % (47-70); POSITIVE DIFFERENTIAL YES; Platelet Count 191 K/mm3 (150-450); RBC Distribution Width CV 12.2 % (11.6-14.6); RBC Distribution Width SD 37.2 fl (35.1-43.9); Red Blood Count 4.89 M/mm3 (4.2-5.4); White Blood Count 5.9 K/mm3 (4.4-11.0)
[2021-10-23 03:17] LABS: Differential Indicated SCAN CRITERIA MET
[2021-10-23 03:29] LABS: D-Dimer Quantitative (DVT/PE) 0.62 FEU/ug/m (0.27-0.49)
[2021-10-23 03:37] LABS: Anion Gap 8 (5-15); BUN 17 mg/dL (7-18); BUN/Creat Ratio 17.1 RATIO (10-20); Calcium,Total 9.3 mg/dL (8.5-10.1); Chloride 104 mmol/L (98-107); EST Glomerular Filtration Rate 61 mL/min (>60); Est Glom Filt Rate - Afr Amer 74 mL/min (>60); Estimated Creatinine Clearance 60.21 ml/min; Glucose 120 mg/dL (74-106); Potassium 3.5 mmol/L (3.5-5.1); Sodium Level 138 mmol/L (136-145); Troponin-I HS 4 pg/mL (3.0-54.0)
--- NOTE | 2021-10-23 03:54 | CT_ITS ---
STUDY: CTA CHEST REASON FOR EXAM: Female, 56 years old. Chest pain, shortness of breath, elevated D-dimer RADIATION DOSAGE (If Supplied By Facility): CTDIvol = ( 11.20 ) mGy, DLP = ( 521.68 ) mGycm TECHNIQUE: The examination was performed with the intravenous administration of IV 100mL Isovue-370. Post-processing of the angiographic images was performed, with multiplanar reformation and 3D reconstruction. Individualized dose optimization techniques were used for this CT. COMPARISON: None. FINDINGS: LUNGS: No consolidation. Mild bronchial wall thickening bilaterally. PLEURA: No pleural effusion. No pneumothorax. PULMONARY VESSELS: No pulmonary emboli identified. MEDIASTINUM: Unremarkable. HEART: Not enlarged. AORTA/GREAT VESSELS: Thoracic aorta is normal caliber. No aneurysm or dissection. ESOPHAGUS: Small hiatal hernia. UPPER ABDOMEN: No acute findings. BONES/SOFT TISSUES: No acute findings. OTHER: None. CT/CTA Chest W/WO Contrast IMPRESSION: No evidence of pulmonary emboli. No consolidation. Mild bronchial wall thickening is nonspecific and may be acute or chronic. Electronically Signed: La Nena Boone MD at 4:27 EDT ,
[2021-10-23] MEDS: Ondansetron 4 MG/2 ML Vial IV (04:26)
[2021-10-23 04:31] VITALS: BP 140/83; PULSE 79; RESP 17; O2SAT 96
[2021-10-23 05:07] VITALS: BP 139/84; PULSE 70; RESP 14; O2SAT 96
== END 2021-10-23 05:08 | disposition home or self-care (01) ==
PROVIDERS: Emergency Provider Emergency Medicine; PCP Family Medicine; Visit Provider Emergency Medicine
DX: B34.9 Viral infection, unspecified (principal); I95.1 Orthostatic hypotension; R07.9 Chest pain, unspecified; R79.89 Other specified abnormal findings of blood chemistry; R19.7 Diarrhea, unspecified; R11.2 Nausea with vomiting, unspecified; R00.0 Tachycardia, unspecified; R05.9 Cough, unspecified; Z20.822 Contact with and (suspected) exposure to COVID-19; R09.3 Abnormal sputum; E86.0 Dehydration; I10 Essential (primary) hypertension; Z87.891 Personal history of nicotine dependence
CPT/HCPCS: 71045; 71275; 80048; 84484; 85025; 85379; 87811; 93005; 96361; 96374; 96375; 99284; J7030; Q9967; A4216; J2405

== ENCOUNTER 2023-11-18 18:20 | Emergency (ER) | payer OTHER, SELFPAY ==
[2023-11-18 18:20] VITALS: BP 144/105; PULSE 98; RESP 18; TEMP 37.2; O2SAT 100
--- NOTE | 2023-11-18 18:35 | RAD_ITS ---
INDICATION: TRAUMA EXAMINATION/TECHNIQUE: X-RAY - RIGHT XR Ankle Min 3 Views COMPARISON: None. FINDINGS: Acute comminuted and minimally displaced fracture of the lateral malleolus. No blastic or lytic lesions. Mild scattered degenerative changes. Soft tissue swelling of the ankle. RAD/Ankle min 3 Views IMPRESSION: Acute comminuted and minimally displaced fracture of the lateral malleolus (Agarwal type B fracture). Electronically Signed: Mateo Brunson MD at 19:20 EDT ,
--- NOTE | 2023-11-18 18:35 | RAD_ITS ---
INDICATION: TRAUMA EXAMINATION/TECHNIQUE: X-RAY - RIGHT XR Foot Min 3 Views COMPARISON: None. FINDINGS: Acute comminuted and minimally displaced fracture of the lateral malleolus. No blastic or lytic lesions. Mild scattered degenerative changes. Soft tissue swelling of the ankle. RAD/Foot min 3 Views IMPRESSION: Acute comminuted and minimally displaced fracture of the lateral malleolus (Agarwal type B fracture). Electronically Signed: Mateo Brunson MD at 19:21 EDT ,
[2023-11-18 19:58] VITALS: BMI 38.7
[2023-11-18] MEDS: HYDROcodone Bitartrate/Apap 5/325 Tablet PO (20:12)
[2023-11-18 20:20] VITALS: BP 144/88; PULSE 66; RESP 18; O2SAT 99
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
[2023-11-18 21:00] VITALS: BP 122/74; PULSE 88; RESP 16; TEMP 36.9; O2SAT 99
== END 2023-11-18 21:27 | disposition home or self-care (01) ==
PROVIDERS: Emergency Provider Emergency Medicine; PCP Family Medicine; Visit Provider Emergency Medicine
DX: S82.61XA Displaced fracture of lateral malleolus of right fibula, initial encounter for closed fracture (principal); Z87.891 Personal history of nicotine dependence; I10 Essential (primary) hypertension; W18.42XA Slipping, tripping and stumbling without falling due to stepping into hole or opening, initial encounter; Z79.899 Other long term (current) drug therapy
CPT/HCPCS: 29515; 73610; 73630; 99283